=== PATIENT | male | born 1960 | race Caucasian/White ===

== ENCOUNTER 2025-04-20 12:13 | Outpatient (CLI) | payer MEDICARE, SELFPAY ==
--- NOTE | 2025-04-20 12:24 | CT_ITS ---
WS: [id number] LDCT LUNG CANCER SCREENING HISTORY: HX OF TOBACCO USE/NICOTINE DEPENDENCE,CIGARETTES TECHNIQUE: Axial imaging performed from the apices to 1 cm below the costophrenic angles. Coronal and sagittal reformats are submitted with axial MIP series. All CT scans at [facility] use at least one of these dose optimization techniques: automated exposure control; mA and/or kV adjustment per patient size (includes targeted exams where dose is matched to clinical indication); or iterative reconstruction. DLP: 51.50 mGy.cm DIvol: Mean CTDIvol: 0.80 (mGy) COMPARISON: None available. Diagnostic quality: Satisfactory Lungs: Severe centrilobular emphysema. There is a slightly spiculated and lobulated mass centered along the RIGHT minor fissure. Mass measures 9 x 6 mm and extends into the RIGHT middle and RIGHT upper lobe. No additional suspicious mass or nodules. Heart: Normal size heart with no pericardial effusion.. Other findings: Mild atherosclerosis aorta. Normal size pulmonary artery. No adenopathy. No adrenal mass. CT/CT lung screening 95238 IMPRESSION: LUNG-RADS: 4A-Probably Suspicious FOLLOW UP: PET/CT recommended OTHER FINDINGS (S MODIFIER): None.
== END 2025-04-20 12:14 | disposition home or self-care (01) ==
LOC: RAD 12:18
PROVIDERS: PCP Family Medicine; Visit Provider Nurse Practitioner Family
DX: Z12.2 Encounter for screening for malignant neoplasm of respiratory organs (principal); Z87.891 Personal history of nicotine dependence; J43.2 Centrilobular emphysema
CPT/HCPCS: 71271